=== PATIENT | female | born 1995 | race Caucasian/White ===

== ENCOUNTER 2017-05-27 14:34 | Emergency (ER) | payer OTHER ==
[~2017-05-27] VITALS: Ht 157.5 cm; Wt 86.8 kg
[2017-05-27] MEDS ORDERED: SUDA30TA8 PO (14:56)
[2017-05-27] MEDS ORDERED: ZOFR8TAB4 PO (14:56)
[2017-05-27] MEDS ORDERED: SUDA15LI2 PO (14:56)
[2017-05-27] MEDS ORDERED: ONDANSETRON 4MG/2ML VIAL (J2405) IV ONE (17:45)
[2017-05-27 18:32] LABS: MEAN CORPUSCULAR HEMOGLOBIN 33.3 pg (27.0-33.0); MEAN CORPUSCULAR HGB CONC 35.1 g/dl (32.0-36.5); PLATELET COUNT, AUTOMATED 328 10^3/uL (150-450); RED CELL DISTRIBUTION WIDTH 12.5 % (11.5-14.5); WHITE BLOOD COUNT 11.5 10^3/uL (4.0-10.0)
[2017-05-27 18:35] LABS: ANION GAP 12 MEQ/L (8-16); BLOOD UREA NITROGEN 7 MG/DL (7-18); CALCIUM LEVEL 9.1 MG/DL (8.5-10.1); CARBON DIOXIDE LEVEL 21 MEQ/L (21-32); CHLORIDE LEVEL 107 MEQ/L (98-107); CREATININE FOR GFR 0.62 MG/DL (0.55-1.02); GLOMERULAR FILTRATION RATE > 60.0 (>60); GLUCOSE, FASTING 80 MG/DL (70-105); POTASSIUM SERUM 3.9 MEQ/L (3.5-5.1); SODIUM LEVEL 140 MEQ/L (136-145)
[2017-05-27] MEDS ORDERED: NS 1,000 ML IV ONE (18:45)
[2017-05-27] MEDS ORDERED: diphenhydrAMINE INJ 50MG/ML VIAL (J1200) IV STA (19:36)
[2017-05-27] MEDS ORDERED: METOCLOPRAMIDE INJ 10MG/2ML VIAL (J2765) IV ONE (19:45)
[2017-05-27] MEDS ORDERED: REGL10TA6 PO (21:08)
[2017-05-27 21:19] VITALS: BP 109/60
== END 2017-05-27 21:20 | disposition home or self-care (01) ==
LOC: M ED 14:34
DX: O21.0 Mild hyperemesis gravidarum (principal); Z3A.15 15 weeks gestation of pregnancy; Z79.899 Other long term (current) drug therapy
CPT/HCPCS: 80048; 81001; 85027; 96374; 96375; 99284; J1200; J2405; J2765

== ENCOUNTER 2017-11-20 19:18 | Inpatient (IN) | payer OTHER ==
[2017-11-20 21:54] LABS: HEMATOCRIT 36.5 % (36.0-47.0); HEMOGLOBIN 12.2 g/dl (12.0-15.5); MEAN CORPUSCULAR HEMOGLOBIN 30.3 pg (27.0-33.0); MEAN CORPUSCULAR HGB CONC 33.4 g/dl (32.0-36.5); MEAN CORPUSCULAR VOLUME 90.6 fl (80.0-96.0); PLATELET COUNT, AUTOMATED 279 10^3/uL (150-450); RED BLOOD COUNT 4.03 10^6/uL (4.00-5.40); RED CELL DISTRIBUTION WIDTH 12.9 % (11.5-14.5); WHITE BLOOD COUNT 9.8 10^3/uL (4.0-10.0)
[2017-11-20] MEDS: LACTATED RINGER'S 1000 ML IV (23:35)
[2017-11-20] MEDS: OXYTOCIN DRIP 30 UNITS in APPROPRIATE DILUENT 1 EA IV (23:35)
[2017-11-21] MEDS: PROMETHAZINE INJ 25 MG/ML VIAL (J2550) IV (00:37)
[2017-11-21] MEDS: NALBUPHINE HCL 10 MG/ML AMP (J2300) IM (00:37)
[2017-11-21] MEDS: NALBUPHINE HCL 10 MG/ML AMP (J2300) IV (00:37)
[2017-11-21] MEDS: LR 1,000 ML IV ×2 (00:38→19:47)
[2017-11-21] MEDS ORDERED: FENTANYL 2MCG/ML ROPIVACAINE 0.2% IN 0.9% NACL 200ML IVBAG As Ordered (04:59)
[2017-11-21] MEDS ORDERED: FENTANYL/ROPIVACAINE/NACL BAG 200 ML EPIDURAL (07:45)
[2017-11-21] MEDS ORDERED: LACTATED RINGER'S 1000 ML IV (07:45)
[2017-11-21] MEDS ORDERED: REFRIGERATOR IV KEYS XX (07:45)
[2017-11-21] MEDS ORDERED: ePHEDrine SULFATE 25 MG/5 ML(5MG/ML) SYRINGE IV (07:45)
[2017-11-21] MEDS ORDERED: diphenhydrAMINE INJ 50MG/ML VIAL (J1200) IV (07:45)
[2017-11-21] MEDS ORDERED: NALOXONE INJ 0.4 MG/1 ML VIAL (J2310) IV ×3 (07:45→18:47)
[2017-11-21] MEDS ORDERED: EPIDURAL/PCA KEYS XX (07:45)
[2017-11-21] MEDS ORDERED: ONDANSETRON 4MG/2ML VIAL (J2405) IV ×3 (07:45→20:00)
[2017-11-21] MEDS ORDERED: EPIDURAL COMMENT XX (07:45)
[2017-11-21] MEDS ORDERED: ceFAZolin 2 GM/D5W 50 ML IV BAG (J0690 PER 500MG) As Ordered (17:38)
[2017-11-21] MEDS ORDERED: BICITRA 30ML SOLN UDC As Ordered (17:38)
[2017-11-21] MEDS: BICITRA 30ML SOLN UDC PO (17:45)
[2017-11-21] MEDS ORDERED: METOCLOPRAMIDE INJ 10MG/2ML VIAL (J2765) IV (18:47)
[2017-11-21] MEDS ORDERED: NALBUPHINE HCL 10 MG/ML AMP (J2300) IV (18:47)
[2017-11-21] MEDS: miSOPROStol 200 MCG TAB (S0191) PR (19:29)
[2017-11-21] MEDS ORDERED: KETOROLAC 30 MG/ML VIAL (J1885) IV (20:00)
[2017-11-21] MEDS ORDERED: MEASLES,MUMPS,RUBELLA VACCINE INJ (MMR-II) (90707) SC (20:00)
[2017-11-21] MEDS ORDERED: PERCOCET 5MG/325MG TAB PO (20:00)
[2017-11-21] MEDS ORDERED: MEPERIDINE INJ 25 MG/ML VIAL (J2175) IV (20:00)
[2017-11-21] MEDS ORDERED: fentaNYL 100 MCG/2 ML INJECTION (J3010) IV (20:00)
[2017-11-21] MEDS: DOCUSATE SODIUM 100 MG CAP PO (21:00)
[2017-11-21] MEDS: AMPICILLIN SOD/SULBACTAM SOD 3 GM in D5W MINI-BAG PLUS 100 ML IV (21:52)
[2017-11-21] MEDS: PERCOCET 5MG/325MG TAB PO (23:35)
[2017-11-22] MEDS: KETOROLAC 30 MG/ML VIAL (J1885) IV ×4 (01:07→19:03)
[2017-11-22] MEDS: AMPICILLIN SOD/SULBACTAM SOD 3 GM in D5W MINI-BAG PLUS 100 ML IV ×4 (03:40→21:43)
[2017-11-22] MEDS: LR 1,000 ML IV (03:47)
[2017-11-22] MEDS: PERCOCET 5MG/325MG TAB PO (04:40)
[2017-11-22 06:40] LABS: HEMATOCRIT 29.2 % (36.0-47.0); MEAN CORPUSCULAR HEMOGLOBIN 30.8 pg (27.0-33.0); MEAN CORPUSCULAR HGB CONC 32.9 g/dl (32.0-36.5); MEAN CORPUSCULAR VOLUME 93.6 fl (80.0-96.0); PLATELET COUNT, AUTOMATED 231 10^3/uL (150-450); RED BLOOD COUNT 3.12 10^6/uL (4.00-5.40); RED CELL DISTRIBUTION WIDTH 13.4 % (11.5-14.5); WHITE BLOOD COUNT 23.6 10^3/uL (4.0-10.0)
[2017-11-22 06:52] LABS: HEMOGLOBIN 9.6 g/dl (12.0-15.5)
[2017-11-22] MEDS: PRENATAL VITAMINS CHEWABLE TABLET PO (09:00)
[2017-11-22 09:47] LABS: FETAL SCREEN PROF. 1 1
[2017-11-22] MEDS: DOCUSATE SODIUM 100 MG CAP PO ×2 (09:57→21:43)
[2017-11-22] MEDS: RHOGAM 300 MCG (1500 IU) INJ (J2790) IM (10:56)
[2017-11-22] MEDS: IBUPROFEN 800 MG TAB PO (21:43)
[2017-11-22] MEDS ORDERED: IBUPROFEN 800 MG TAB PO (22:00)
[2017-11-23] MEDS: PERCOCET 5MG/325MG TAB PO (00:32)
[2017-11-23] MEDS: IBUPROFEN 800 MG TAB PO ×2 (04:59→14:08)
[2017-11-23] MEDS: DOCUSATE SODIUM 100 MG CAP PO (07:55)
[2017-11-23] MEDS: PRENATAL VITAMINS CHEWABLE TABLET PO (07:55)
== END 2017-11-23 15:30 | disposition home or self-care (01) | DRG 766 ==
LOC: M LDO 19:18 → M OBS 11-21 21:16 → M LDI 21:01
PROVIDERS: Obstetrics & Gynecology
PROC: 10D00Z1 Extraction of Products of Conception, Low, Open Approach (ICD-10-PCS; principal; 2017-11-21 18:04)
PROC: 3E033VJ Introduction of Other Hormone into Peripheral Vein, Percutaneous Approach (ICD-10-PCS; 2017-11-21 18:04)
DX: O36.8130 Decreased fetal movements, third trimester, not applicable or unspecified (principal); Z37.0 Single live birth; Z3A.40 40 weeks gestation of pregnancy; O48.0 Post-term pregnancy; O62.0 Primary inadequate contractions; O76 Abnormality in fetal heart rate and rhythm complicating labor and delivery

== ENCOUNTER → 2018-02-10 | Outpatient (REF) | payer OTHER | LOC: M SFHCLERA 18:58 | DX: L50.8 Other urticaria (principal) ==

== ENCOUNTER → 2018-06-13 | Outpatient (REF) | payer OTHER ==
[~2018-06-13] MED LIST: COLA100C5 PO; IBUP-1114 PO; OXYC1TAB23 PO; PRENTAB9 PO; REGL10TA6 PO; SUDA15LI2 PO; SUDA30TA8 PO; ZOFR8TAB22 PO
[2018-06-14 13:47] LABS: CHLAMYDIA DNA AMPLIFICATION NEGATIVE (NEGATIVE); GC DNA AMPLIFICATION NEGATIVE (NEGATIVE)
== END ==
LOC: M SFHCLERA 17:54
PROVIDERS: ATTEND Nurse Practitioner Family
DX: R10.84 Generalized abdominal pain (principal)
CPT/HCPCS: 81002; 81025; 87086; 87491; 87591; 87880; G0463

== ENCOUNTER → 2018-07-01 | Outpatient (REF) | payer OTHER | LOC: M SFHCLERA 16:45 | PROVIDERS: ATTEND Physician Assistant | DX: J02.9 Acute pharyngitis, unspecified (principal) ==

== ENCOUNTER 2018-07-30 08:46 | Emergency (ER) | payer OTHER ==
[~2018-07-30] VITALS: Ht 157.5 cm; Wt 88.2 kg
[2018-07-30 08:47] VITALS: BP 113/67
[2018-07-30] MEDS ORDERED: MIRE1IUD IU (08:54)
[2018-07-30] MEDS ORDERED: dexameTHASONE 4 MG/ML 1ML VIAL (J1100) IM ONE (09:30)
== END 2018-07-30 09:53 | disposition home or self-care (01) ==
LOC: M ED 08:46
DX: R21 Rash and other nonspecific skin eruption (principal); L29.9 Pruritus, unspecified; T78.49XA Other allergy, initial encounter; X58.XXXA Exposure to other specified factors, initial encounter; Y92.89 Other specified places as the place of occurrence of the external cause; Z97.5 Presence of (intrauterine) contraceptive device; F17.210 Nicotine dependence, cigarettes, uncomplicated
CPT/HCPCS: 96372; 99282; J1100

== ENCOUNTER 2018-08-05 06:33 | Emergency (ER) | payer OTHER ==
[~2018-08-05] VITALS: Ht 157.5 cm; Wt 88.2 kg
[~2018-08-05 06:33] MED LIST changes: +MIRE1IUD IU
--- NOTE | 2018-08-05 07:11 | REP ---
Clinical: Right shoulder pain . Technique: Internal rotation, external rotation, and Y view right shoulder . Findings: No acute fracture or dislocation. The acromioclavicular and glenohumeral joints are intact. No periarticular calcifications or degenerative changes are appreciated. Sub acromial space is normal. Surrounding soft tissues are unremarkable. Impression: Normal right shoulder radiographs. Electronically Signed by Solomon Giraldo MD 08/05/2018 07:03 A
[2018-08-05] MEDS ORDERED: ROBA500T PO (07:57)
[2018-08-05] MEDS ORDERED: KETO10TAB PO (07:57)
[2018-08-05] MEDS ORDERED: VOLT1GEL15 TOP (07:57)
[2018-08-05 08:24] VITALS: BP 94/65
== END 2018-08-05 08:29 | disposition home or self-care (01) ==
LOC: M ED 06:33
DX: S46.011A Strain of muscle(s) and tendon(s) of the rotator cuff of right shoulder, initial encounter (principal); X50.9XXA Other and unspecified overexertion or strenuous movements or postures, initial encounter; Y92.89 Other specified places as the place of occurrence of the external cause; Y99.0 Civilian activity done for income or pay; Z97.5 Presence of (intrauterine) contraceptive device; F17.210 Nicotine dependence, cigarettes, uncomplicated

== ENCOUNTER → 2018-10-12 | Outpatient (CLI) | payer OTHER ==
[~2018-10-12] MED LIST changes: +KETO10TAB PO; +ROBA500T PO; +VOLT1GEL15 TOP
--- NOTE | 2018-10-12 13:55 | REP ---
Chest two views HISTORY: Cough Comparison: None The lungs are clear. The heart is normal in size. The pulmonary vasculature is normal in appearance. The bony structure is intact. IMPRESSION: No acute disease. Electronically Signed by Loi Newby MD 10/12/2018 01:47 P
== END ==
LOC: M WUC 12:58
PROVIDERS: ATTEND Physician Assistant
DX: R05 Cough (principal); J06.9 Acute upper respiratory infection, unspecified